=== PATIENT | female | born 1965 | race Caucasian/White ===

== ENCOUNTER 2017-02-12 15:46 | Emergency (ER) | payer OTHER, BC ==
[~2017-02-12] VITALS: Ht 170.2 cm; Wt 66.0 kg
[~2017-02-12 15:46] MED LIST: ESCI1TAB10 PO; MULT-506 PO
[2017-02-12 15:50] VITALS: TEMP 37; Ht 170.2 cm; Wt 66.0 kg
[2017-02-12] MEDS ORDERED: DIPHTHERIA/TETANUS/PERTUSSIS 0.5 ML SYR/VIAL IM. ONE (16:15)
[2017-02-12] MEDS ORDERED: CEPH500C PO (16:15)
[2017-02-12] MEDS ORDERED: CEPHALEXIN MONOHYDRATE 250 MG CAP PO ONE (16:15)
[2017-02-12 16:30] VITALS: BP 128/78; PULSE 77; O2SAT 99
--- NOTE | 2017-02-12 21:21 | EMERGENCY ROOM VISIT NOTE ---
ED Visit Note First contact with patient: 15:56 CHIEF COMPLAINT: Finger laceration HISTORY OF PRESENT ILLNESS: This 51-year-old female patient presents to the emergency department after cutting the right fifth finger on a box of Saran wrap about 20 hours ago. The patient states she caught her finger on the serrated cutting edge of the box. The bleeding has stopped. Denies weakness or numbness of the finger. The patient has full range of motion of the fingers. The patient rates the pain as dull and 2/10. The patient denies any other injuries. The patient's is unsure of her tetanus status. REVIEW OF SYSTEMS: A 6 system review of systems was completed with positives and pertinent negatives listed in the HPI. ALLERGIES: Sulfa MEDICATIONS: See EMR PMH: No chronic medical disease SOCIAL HISTORY: Employed and lives locally PHYSICAL EXAM: Vital Signs: Reviewed Nurse's notes, vital signs stable. GENERAL : White female, in no acute distress, well developed, well nourished. SKIN: There is a superficial 2.0 cm long laceration on the lateral aspect of the right fifth finger. The wound appears to be healing without obvious drainage or discharge. No bleeding. The patient is with full strength and range of motion of the digit. Capillary refill less than 2 seconds. Normal sensation to light and sharp touch. EMERGENCY DEPARTMENT COURSE: Physical exam and history were performed. Nursing notes and EMR were reviewed. The patient appears to have suffered a laceration to her finger about 20 hours ago. The patient does not have obvious signs of infection and the wound is healing. She is outside of the window for suture repair at this time. I discussed options of care with the patient. She will be given a course of Keflex. Her tetanus was updated. She was placed in a bacitracin dressing and otherwise invited back to the ER with any new, worsening, or concerning symptoms. Problem List Medical Problems: (1) Depression Status: Chronic Surgical Problems: (1) S/P hemorrhoidectomy Status: Resolved (2) S/P reconstruction of anterior cruciate ligament Status: Resolved (3) S/P tonsillectomy and adenoidectomy Status: Resolved (4) Status post hip surgery Status: Resolved Current/Historical Medications Scheduled Cephalexin Monohydrate (Keflex), 500 MG PO TID Escitalopram Oxalate (Lexapro), 20 MG PO DAILY Multivitamin (Multivitamin), 1 TAB PO DAILY Allergies Coded Allergies: Kiwi (Unverified Allergy, Unknown, SWELLING, 03/17/15) Sulfa Drugs (Unverified Allergy, Unknown, HIVES, 03/17/15) Vital Signs Date Time Temp Pulse Resp B/P Pulse Ox O2 Delivery O2 Flow Rate FiO2 02/12/17 16:30 77 18 128/78 99 02/12/17 15:50 37.0 64 18 114/67 98 Medications Administered Medications (Trade) Dose Ordered Sig/Leo Route Start Time Stop Time Status Last Admin Dose Admin Cephalexin Monohydrate (Keflex Cap) 500 mg NOW ONCE PO 02/12/17 16:15 02/12/17 16:16 DC 02/12/17 16:23 500 MG Diphtheria/ Pertussis/Tetanus Vacc (Adacel Inj) 0.5 ml ONCE ONCE IM. 02/12/17 16:15 02/12/17 16:16 DC 02/12/17 16:25 0.5 ML Departure Information Impression Primary Impression: Finger laceration Dispostion Home / Self-Care Condition GOOD Prescriptions Cephalexin Monohydrate (Keflex) 500 Mg Cap 500 MG PO TID for 7 Days, #21 CAP Prov: Sravan Rollins PA-C 02/12/17 Forms HOME CARE DOCUMENTATION FORM, IMPORTANT VISIT INFORMATION Patient Instructions My [facility] Additional Instructions You were seen and evaluated today on an emergency basis only. This is not a substitute for, or an effort to provide, complete comprehensive medical care. It is not possible to recognize and treat all injuries or illnesses in a single emergency department visit. For this reason it is recommended that you followup with your primary care physician or Workmen's Compensation provider this week for ongoing care and evaluation. Cephalexin(Keflex) 500mg: Take one pill 3 times daily for 7 days to prevent skin infection. All antibiotics can cause diarrhea. If this occurs and you feel worse or it does not resolve in 1-2 days follow up with your doctor or return to the Emergency Department as this could be signs of serious underlying problems. Any medication can cause an allergic reaction, stop the pills immediately and return to the ER for rash, hives, breathing difficulties, or swelling. You are welcome to return to the emergency department anytime with new, worsening, or concerning symptoms.
== END 2017-02-12 16:30 | disposition home or self-care (01) ==
LOC: C.EDB 15:47 → C.EDD 16:30
DX: S61.216A Laceration without foreign body of right little finger without damage to nail, initial encounter (principal); W45.8XXA Other foreign body or object entering through skin, initial encounter

== ENCOUNTER → 2018-01-27 | Outpatient (CLI) | payer BC, OTHER | END | disposition home or self-care (01) | LOC: C.RDSM 08:00 | PROVIDERS: ATTEND Family Medicine Sports Medicine | DX: M79.641 Pain in right hand (principal); M79.642 Pain in left hand ==